=== PATIENT | female | born 1995 | race Caucasian/White ===

== ENCOUNTER 2018-07-12 13:08 | Emergency (ER) | payer OTHER ==
--- OUTSIDE RECORDS SUMMARY | 2018-07-12 13:26 | XMS REPORT | Continuity of Care Document ---
:1995 External Reference #:[id number] Author Name Luis Washington OD Address [address] [place] [address] Care Team Providers Name Role Phone Luis Washington OD Care Team Information Truck Hopper Unavailable Payers Date Identification Numbers Payment Provider Subscriber Policy Number: [id number] [facility] [facility] [employer] Group Number: [id number] [address] PayID: [id number] [place] [address] Advance Directives Description No Information Available Problems Description No Information Family History Date Family Member(s) Observation Comments General Glasses General No Current Problems Father Glasses Father No Current Problems Mother Glasses Mother No Current Problems Social History Type Date Description Comments Sex Unknown ETOH Use Occasionally consumes alcohol Tobacco Use Start: Unknown Patient is a current smoker, smokes every day Smoking Vaping Smoking Status Reviewed: 07/01/18 Patient is a current smoker, smokes every day Allergies, Adverse Reactions, Alerts Description No Known Drug Allergies Medications Active Medications SIG Qnty Indications Ordering Provider Date Fluorometholone 1gtt three 10ml Luis Washington OD 07/01/2018 0.1% Suspension times a day both eyes x 1 week Latuda Unknown 20mg Tablets Immunizations Description No Information Available Vital Signs Description No Information Available Results Description No Information Available Procedures Description No Information Available Encounters Description No Information Available Plan of Treatment 07/01/2018 - Luis Washington [id number] Dry eye syndrome of bilateral lacrimal glandsFollow up:1 WEEK F/U, SOONER PRN
--- OUTSIDE RECORDS SUMMARY | 2018-07-12 13:26 | XMS REPORT | Continuity of Care Document ---
:1995 External Reference #:[id number] Author Name Luis Washington, LICHA Address [address] [place] [address] Care Team Providers Name Role Phone Luis Washington OD Care Team Information Professional Nursing Tutor Unavailable Payers Date Identification Numbers Payment Provider Subscriber Policy Number: [id number] [facility] Kwaku Jaime Group Number: [id number] [address] PayID: [id number] [place] [address] Advance Directives Description No Information Available Problems [...] every day Smoking Vaping Smoking Status Reviewed: 07/07/18 Patient is a current smoker, smokes every day Allergies, Adverse Reactions, Alerts Description No Known Drug Allergies Medications Active Medications SIG Qnty Indications Ordering Provider Date Moxifloxacin HCL 1 drop both 3ml Luis Washington, LICHA 07/07/2018 0.5% Solution eyes qid x 1 week, then d/c Fluorometholone 1gtt three 10ml Luis Washington OD 07/01/2018 0.1% Suspension times a day both eyes x 1 week Latuda Unknown 20mg Tablets Immunizations Description No Information Available Vital Signs Date Vital Result Comment 07/01/2018 12:56pm Intraocular Pressure Right Eye 16 mmHg Intraocular Pressure Left Eye 16 mmHg Results Description No Information Available Procedures Description No Information Available Encounters Type Date Location Provider Dx Diagnosis Office Visit 07/01/2018 Main Office Luis Washington, OD H04.123 Dry eye syndrome of 9:45a bilateral lacrimal glands Plan of Treatment 07/07/2018 - Luis Washington [id number] Dry eye syndrome of bilateral lacrimal glandsFollow up:1 week f/u, sooner PRN
--- NOTE | 2018-07-12 13:41 | ED ---
Throat Pain/Nasal Congestion - HPI Summary HPI Summary: This patient is a 23 year old female presenting [facility] accompanied by friend with a chief complaint of blurry vision and headache since 3-4 days ago. Patient states that she has had bilateral eye pain, worse on the left side, for nearly 1 month. Patient started developing blurry vision 2 weeks ago and went to see an guest services manager, who gave her prescription eyedrops. Patient states that the eyedrops did not alleviate the symptoms. 2-3 days ago, patient developed a headache, which is located mostly on the left side of her head. The pain is rated 5/10 in severity. Symptoms aggravated by nothing. Symptoms alleviated by nothing. - History of Current Complaint Chief Complaint: EDEyeProblem Time Seen by Provider: 07/12/18 13:29 Hx Obtained From: Patient Onset/Duration: Still Present Severity: Mild Cough: None - Allergies/Home Medications Allergies/Adverse Reactions: Allergies Allergy/AdvReac Type Severity Reaction Status Date / Time lamotrigine [From Lamictal] Allergy Rash Verified 07/12/18 13:16 Home Medications: Home Medications Lurasidone(*) [Latuda] 30 mg PO DAILY WITH MEAL 07/12/18 [History Confirmed 02/18] PMH/Surg Hx/FS Hx/Imm Hx Previously Healthy: Yes Opthamlomology History: Denies: Hx Legally Blind EENT History: Denies: Hx Deafness Infectious Disease History: No Infectious Disease History: Denies: Traveled Outside the [place] in Last 30 Days - Family History Known Family History: Negative: Hypertension - Social History Occupation: Student Lives: Dormitory/Roommates Alcohol Use: None Hx Substance Use: No Substance Use Type: Reports: None Hx Tobacco Use: No Smoking Status (MU): Never Smoked Tobacco Review of Systems Negative: Fever Positive: Blurred Vision, Other - eye pain Positive: Headache All Other Systems Reviewed And Are Negative: Yes Physical Exam - Summary Physical Exam Summary: Appearance: The patient is well-nourished in no acute distress and in no acute pain. Skin: The skin is warm and dry and skin color reflects adequate perfusion. HEENT: The head is normocephalic and atraumatic. The pupils are equal and reactive. The conjunctivae are clear and without drainage. Nares are patent and without drainage. Mouth reveals moist mucous membranes and the throat is without erythema and exudate. The external ears are intact. The ear canals are patent and without drainage. The tympanic membranes are intact. Neck: The neck is supple with full range of motion and non-tender. There are no carotid bruits. There is no neck vein distension. Respiratory: Chest is non-tender. Lungs are clear to auscultation and breath sounds are symmetrical and equal. Cardiovascular: Heart is regular rate and rhythm. There is no murmur or rub auscultated. There is no peripheral edema and pulses are symmetrical and equal. Abdomen: The abdomen is soft and non-tender. There are normal bowel sounds heard in all four quadrants and there is no organomegaly palpated. Musculoskeletal: There is no back tenderness noted. Extremities are non-tender with full range of motion. There is good capillary refill. There is no peripheral edema or calf tenderness elicited. Neurological: Patient is alert and oriented to person, place and time. The patient has symmetrical motor strength in all four extremities. Cranial nerves are grossly intact. Deep tendon reflexes are symmetrical and equal in all four extremities. Psychiatric: The patient has an appropriate affect and does not exhibit any anxiety or depression. Triage Information Reviewed: Yes Vital Signs On Initial Exam: Initial Vitals Temp Pulse Resp BP Pulse Ox 98.2 F 105 16 133/88 98 07/12/18 13:12 07/12/18 13:12 07/12/18 13:12 07/12/18 13:12 07/12/18 13:12 Vital Signs Reviewed: Yes Diagnostics - Vital Signs Vital Signs Temp Pulse Resp BP Pulse Ox 07/12/18 13:12 98.2 F 105 16 133/88 98 - Laboratory Lab Statement: Any lab studies that have been ordered have been reviewed, and results considered in the medical decision making process. - CT CT Brain CT Interpretation Completed By: Radiologist Summary of CT Findings: CT Brain reveals, per radiologist, IMPRESSION: Normal CT of the brain. ED physician has reviewed this radiology report. EENT Course/Dx - Course Course Of Treatment: Ms. Jaime has had several weeks of problems with primarily her left eye. It started as blurred vision and in the last 4 or 5 days she has developed a headache on the left. She saw Dr. Washington a couple weeks ago and was given prednisone drops for corneal inflammation. She went back as this was not helping and she was given a fluoroquin. That was about a week ago and she comes in complaining that is not helping. I couldn't see either of her fundi very clearly but the rest of her exam was completely normal. I spoke with Dr. Stock pet food deboner for ophthalmology who recommended a CT scan and then follow-up tomorrow morning with him in the office. CT scan was negative and she agreed to follow up. - Diagnoses Provider Diagnoses: Headache - Provider Notifications Discussed Care Of Patient With: Elver Ruvalcaba - Scientific Software Developer Time Discussed With Above Provider: 13:56 - We discussed patient care with Dr. Ruvalcaba (Scientific Software Developer) at [address] they recommended a CT scan and following up with him tomorrow. Discharge - Sign-Out/Discharge Documenting (check all that apply): Patient Departure Patient Received Moderate/Deep Sedation with Procedure: No - Discharge Plan Condition: Stable Disposition: HOME Patient Education Materials: Acute Headache (ED) Referrals: No Primary Care Phys,NOPCP [Primary Care Provider] - Elver Ruvalcaba MD [Medical Doctor] - 1 Day Additional Instructions: Call Dr. Ruvalcaba's office first thing tomorrow morning and specifically ask to see Dr. Ruvalcaba. Return to the ED for any new or worsening symptoms. - Billing Disposition and Condition Condition: STABLE Disposition: Home - Attestation Statements Document Initiated by Donell: Yes Documenting Scribe: Davie Siegel Provider For Whom Donell is Documenting (Include Credential): Franco Peterson MD Scribe Attestation: I, Davie Siegel, scribed for Franco Peterson MD on 07/13/18 at 0849. Scribe Documentation Reviewed: Yes Provider Attestation: The documentation as recorded by the Davie darnell accurately reflects the service I personally performed and the decisions made by me, Franco Peetrson MD Status of Scribe Document: Viewed
[2018-07-12 15:27] VITALS: BP 115/77
== END 2018-07-12 15:26 | disposition home or self-care (01) ==
LOC: ED 13:08
DX: R51 Headache (principal); H53.8 Other visual disturbances
CPT/HCPCS: 70450; 99282